=== PATIENT | male | born 1960 | race Caucasian/White ===

== ENCOUNTER 2024-08-03 20:00 | Inpatient (IN) | payer OTHER ==
[2024-08-03 19:45] VITALS: BP 131/75; PULSE 73; RESP 18; TEMP 99.2; O2SAT 95
[2024-08-03] MEDS ORDERED: MIRT-89 PO (20:39)
[2024-08-03] MEDS ORDERED: METH1ADH11 TP (20:39)
[2024-08-03] MEDS ORDERED: CARB1TAB36 PO (20:39)
[2024-08-03] MEDS ORDERED: OLAN5TAB52 PO (20:39)
[2024-08-03] MEDS ORDERED: THIA100T80 PO (20:39)
[2024-08-03] MEDS ORDERED: FERR325T27 PO (20:39)
[2024-08-03] MEDS ORDERED: VALP250S23 PO (20:39)
[2024-08-03] MEDS ORDERED: METO25 PO (20:39)
[2024-08-03] MEDS ORDERED: BENZ-227 PO (20:39)
[2024-08-03] MEDS ORDERED: ATOR40TA28 PO (20:39)
[2024-08-03] MEDS ORDERED: CARB25TA PO (20:39)
[2024-08-03] MEDS ORDERED: APIX5TAB PO (20:39)
[2024-08-03] MEDS ORDERED: TRAZ-252 PO (20:39)
[2024-08-03] MEDS ORDERED: ONDANSETRON HCL 4 MG/2 ML VIAL IVP PRN (20:45)
[2024-08-03] MEDS ORDERED: OLANZapine 5 MG TABLET PO PRN (20:45)
[2024-08-03] MEDS ORDERED: ALBUTEROL SULFATE 2.5 MG/0.5 ML NEB SOLUTION NEB PRN (21:00)
[2024-08-03] MEDS: DOCUSATE SODIUM 100 MG CAPSULE PO SCH (21:00)
[2024-08-03 21:26] LABS: BASOPHILS % (AUTO) 0.8 % (0.0-2.0); EOSINOPHILS % (AUTO) 4.7 % (1.0-6.0); HEMATOCRIT 26.4 % (41-53); HEMOGLOBIN 8.6 g/dL (13.5-17.5); LYMPHOCYTES # (AUTO) 2.5 K/uL (1.0-4.8); LYMPHOCYTES % (AUTO) 25.2 % (22.0-44.0); MEAN CORPUSCULAR HEMOGLOBIN 30.4 pg (26.0-34.0); MEAN CORPUSCULAR HGB CONC 32.3 G/dL (31.0-37.0); MEAN CORPUSCULAR VOLUME 94 fL (80-100); MONOCYTES # (AUTO) 0.9 K/uL (0.1-1.0); MONOCYTES % (AUTO) 9.1 % (2.0-9.0); NEUTROPHILS # (AUTO) 5.9 K/uL (1.8-7.7); NEUTROPHILS % (AUTO) 60.2 % (40.0-70.0); PLATELET COUNT (AUTO) 516 K/uL (150-450); RED BLOOD CELL COUNT(AUTO) 2.81 MIL/uL (4.50-5.90); RED CELL DISTRIBUTION WIDTH 17.4 % (11.5-14.5); WHITE BLOOD COUNT (AUTO) 9.9 K/uL (4.5-11.0)
[2024-08-03 21:34] LABS: CALCIUM, TOTAL 8.7 mg/dL (8.8-10.5); CREATININE 1.96 mg/dL (0.60-1.30); POTASSIUM 4.6 mmol/L (3.5-5.1)
[2024-08-03 21:42] LABS: ALBUMIN 2.4 g/dL (3.4-5.0); BILIRUBIN,TOTAL 0.2 mg/dL (0.1-1.0); TOTAL PROTEIN, SERUM 7.7 g/dL (6.4-8.2)
[2024-08-03] MEDS: APIXABAN 5 MG TABLET PO SCH (21:47)
[2024-08-03] MEDS: BENZONATATE 100 MG CAPSULE PO PRN (21:47)
[2024-08-03] MEDS: CARBIDOPA/LEVODOPA 25-100 MG TABLET PO SCH (21:47)
[2024-08-03] MEDS: METOPROLOL TARTRATE 25 MG TABLET PO SCH (21:47)
[2024-08-03] MEDS: VALPROIC ACID 250 MG/5 ML SOLUTION UDCUP PO SCH (21:47)
[2024-08-03] MEDS: MIRTAZAPINE 15 MG TABLET PO SCH (21:47)
[2024-08-03] MEDS: ACETAMINOPHEN 325 MG TABLET PO PRN (22:02)
[2024-08-03 23:47] LABS: % IRON SATURATION 17.3 % (30-44)
[2024-08-04 04:12] VITALS: BP 120/78; PULSE 78; RESP 18; TEMP 98.4; O2SAT 95
[2024-08-04 05:35] LABS: BASOPHILS % (AUTO) 1.1 % (0.0-2.0); EOSINOPHILS % (AUTO) 5.2 % (1.0-6.0); HEMATOCRIT 27.8 % (41-53); LYMPHOCYTES # (AUTO) 2.1 K/uL (1.0-4.8); LYMPHOCYTES % (AUTO) 22.2 % (22.0-44.0); MEAN CORPUSCULAR HEMOGLOBIN 30.5 pg (26.0-34.0); MEAN CORPUSCULAR HGB CONC 32.4 G/dL (31.0-37.0); MEAN CORPUSCULAR VOLUME 94 fL (80-100); MONOCYTES # (AUTO) 0.9 K/uL (0.1-1.0); MONOCYTES % (AUTO) 9.7 % (2.0-9.0); NEUTROPHILS # (AUTO) 5.8 K/uL (1.8-7.7); NEUTROPHILS % (AUTO) 61.8 % (40.0-70.0); PLATELET COUNT (AUTO) 524 K/uL (150-450); RED BLOOD CELL COUNT(AUTO) 2.96 MIL/uL (4.50-5.90); RED CELL DISTRIBUTION WIDTH 17.6 % (11.5-14.5); WHITE BLOOD COUNT (AUTO) 9.3 K/uL (4.5-11.0)
[2024-08-04 05:48] LABS: CALCIUM, TOTAL 8.9 mg/dL (8.8-10.5); CREATININE 1.81 mg/dL (0.60-1.30); MAGNESIUM 1.6 mg/dL (1.80-2.40)
[2024-08-04] MEDS ORDERED: INFLUENZA VIRUS VACCINE TVS (6MO+) 2024-25/PF 45 MCG/0.5 ML SYRINGE IM. ONE (06:30)
[2024-08-04 07:55] VITALS: BP 119/70; PULSE 76; RESP 18; TEMP 98.2; O2SAT 96
[2024-08-04] MEDS: THIAMINE 100 MG TABLET PO SCH (09:19)
[2024-08-04] MEDS: FERROUS SULFATE 325 MG EC TABLET PO SCH (09:19)
[2024-08-04] MEDS: ATORVASTATIN CALCIUM 40 MG TABLET PO SCH (09:19)
[2024-08-04 15:45] VITALS: BP 119/74; PULSE 67; RESP 18; TEMP 97.9; O2SAT 98
[2024-08-04] MEDS: MAGNESIUM OXIDE 400 MG TABLET PO ONE (15:55)
[2024-08-04] MEDS: TraZODone HCL 50 MG TABLET PO PRN (20:51)
[2024-08-05 04:41] VITALS: BP 108/78; PULSE 77; RESP 18; TEMP 98.7; O2SAT 97
[2024-08-05] MEDS: APIXABAN 5 MG TABLET PO SCH (09:41)
[2024-08-05 20:33] VITALS: BP 107/62; PULSE 77; RESP 17; TEMP 98.4; O2SAT 95
[2024-08-05] MEDS: OLANZapine 5 MG TABLET PO SCH (21:02)
[2024-08-05] MEDS: MIRTAZAPINE 30 MG TABLET PO SCH (21:03)
[2024-08-06 04:40] VITALS: BP 126/86; PULSE 73; RESP 18; TEMP 97.9; O2SAT 95
[2024-08-06 08:30] VITALS: BP 112/65; PULSE 67; RESP 18; TEMP 98.1; O2SAT 97
[2024-08-06] MEDS: EPOETIN ALFA 10,000 UNITS/ML VIAL SQ SCH (09:00)
[2024-08-06 17:47] LABS: COVID AG,FIA SOURCE NASAL SWAB
[2024-08-06 18:07] LABS: SARS-COV2 (COVID) ANTIGEN,FIA Negative (Negative)
[2024-08-06] MEDS ORDERED: DOCU-385 PO (18:46)
[2024-08-06] MEDS ORDERED: MIRT-149 PO (18:49)
[2024-08-06] MEDS ORDERED: OLAN5TAB52 PO (18:50)
[2024-08-06] MEDS ORDERED: ALBU2.5V39 NEB (18:51)
[2024-08-06] MEDS ORDERED: ACET-2247 PO (18:51)
[2024-08-06] MEDS ORDERED: ONDA4VIA60 IVP (18:53)
[2024-08-06 20:21] VITALS: BP 107/63; PULSE 83; RESP 18; TEMP 98.9; O2SAT 97
[2024-08-07] MEDS ORDERED: THIA100T80 PO (15:35)
[2024-08-07] MEDS ORDERED: OLAN5TAB52 PO (15:35)
[2024-08-07] MEDS ORDERED: MIRT-149 PO (15:35)
== END 2024-08-06 23:00 | DRG 392 ==
LOC: 4E 20:03
PROVIDERS: ADMIT Internal Medicine; ATTEND Internal Medicine
PROC: GZ56ZZZ Individual Psychotherapy, Supportive (ICD-10-PCS; principal; 2024-08-05)
DX: R13.10 Dysphagia, unspecified (principal); G20.C Parkinsonism, unspecified; N18.30 Chronic kidney disease, stage 3 unspecified; Z20.822 Contact with and (suspected) exposure to COVID-19; F25.9 Schizoaffective disorder, unspecified; F25.1 Schizoaffective disorder, depressive type; I12.9 Hypertensive chronic kidney disease with stage 1 through stage 4 chronic kidney disease, or unspecified chronic kidney disease; D63.1 Anemia in chronic kidney disease; E78.5 Hyperlipidemia, unspecified; Z86.718 Personal history of other venous thrombosis and embolism; Z79.01 Long term (current) use of anticoagulants; Z79.899 Other long term (current) drug therapy
CPT/HCPCS: 71045; 71250; 74230; 80048; 80053; 82271; 83540; 83550; 83735; 85025; 85045; 87081; 92610; 92611; 97116; 97162; 97166; 97535; G0378; J0885; 36415-L1; 36415-TC

== ENCOUNTER 2024-08-06 11:01 | Inpatient (IN) | payer OTHER ==
[~2024-08-06] VITALS: Ht 167.6 cm; Wt 74.2 kg
[~2024-08-06 11:01] MED LIST: APIX5TAB PO; ATOR40TA28 PO; BENZ-227 PO; CARB1TAB36 PO; CARB25TA PO; FERR325T27 PO; METH1ADH11 TP; METO25 PO; MIRT-89 PO; OLAN5TAB52 PO; THIA100T80 PO; TRAZ-252 PO; VALP250S23 PO
[2024-08-06] MEDS ORDERED: ZOLPIDEM TARTRATE 10 MG TABLET PO PRN (12:30)
[2024-08-06] MEDS ORDERED: HALOPERIDOL 5 MG TABLET PO PRN (12:30)
[2024-08-06] MEDS ORDERED: DOCU-385 PO (18:46)
[2024-08-06] MEDS ORDERED: MIRT-149 PO (18:49)
[2024-08-06] MEDS ORDERED: OLAN5TAB52 PO (18:50)
[2024-08-06] MEDS ORDERED: ACET-2247 PO (18:51)
[2024-08-06] MEDS ORDERED: ALBU2.5V39 NEB (18:51)
[2024-08-06] MEDS ORDERED: ONDA4VIA60 IVP (18:53)
[2024-08-06] MEDS: OLANZapine 5 MG TABLET PO SCH (21:00)
[2024-08-06] MEDS: MIRTAZAPINE 30 MG TABLET PO SCH (21:00)
[2024-08-06 23:30] VITALS: BP 125/82; PULSE 80; RESP 18; TEMP 97.2; O2SAT 97
[2024-08-07 06:09] LABS: HEMOGLOBIN A1C 5.1 % (3.8-5.6)
[2024-08-07 06:14] LABS: CHOL/HDL RATIO 4.3 (4.2-7.3)
[2024-08-07] MEDS ORDERED: DOCUSATE SODIUM 100 MG CAPSULE PO PRN (07:00)
[2024-08-07] MEDS ORDERED: ACETAMINOPHEN 325 MG TABLET PO PRN (07:00)
[2024-08-07] MEDS ORDERED: MAGNESIUM HYDROXIDE SUSPENSION 30 ML UDCUP PO PRN (07:00)
[2024-08-07] MEDS ORDERED: IBUPROFEN 400 MG TABLET PO PRN (07:00)
[2024-08-07] MEDS ORDERED: ONDANSETRON 4 MG TABLET PO PRN (07:00)
[2024-08-07] MEDS ORDERED: PETROLATUM,WHITE 28 GM JELLY TP PRN (07:00)
[2024-08-07] MEDS ORDERED: MAG HYDROX/ALUMINUM HYD/SIMETH ES 30 ML SUSPENSION UDCUP PO PRN (07:00)
[2024-08-07] MEDS ORDERED: ALBUTEROL SULFATE HFA 90 MCG/PUFF 8 GM INHALER IH PRN (07:00)
[2024-08-07] MEDS ORDERED: LOPERAMIDE HCL 2 MG CAPSULE PO PRN (07:00)
[2024-08-07] MEDS ORDERED: CloNIDine HCL 0.1 MG TABLET PO PRN (07:00)
[2024-08-07] MEDS ORDERED: GuaiFENesin/D-METHORPHAN [SUGAR-FREE] 200-20MG/10 ML SYRUP UDCUP PO PRN (07:00)
[2024-08-07] MEDS ORDERED: NICOTINE 14 MG/24 HOUR PATCH TD PRN (07:00)
[2024-08-07 08:00] VITALS: BP 125/83; PULSE 83; RESP 18; TEMP 97.8
[2024-08-07] MEDS: THIAMINE 100 MG TABLET PO SCH (08:10)
[2024-08-07] MEDS: ATORVASTATIN CALCIUM 40 MG TABLET PO SCH (08:11)
[2024-08-07] MEDS: METOPROLOL TARTRATE 25 MG TABLET PO SCH (08:11)
[2024-08-07] MEDS: CARBIDOPA/LEVODOPA 25-100 MG TABLET PO SCH (08:12)
[2024-08-07] MEDS: FERROUS SULFATE 325 MG EC TABLET PO SCH (08:13)
[2024-08-07] MEDS: APIXABAN 5 MG TABLET PO SCH (08:30)
[2024-08-07 10:04] VITALS: BP 125/83; PULSE 83; RESP 18; TEMP 97.8; O2SAT 98
[2024-08-07] MEDS ORDERED: THIA100T80 PO (15:35)
[2024-08-07] MEDS ORDERED: OLAN5TAB52 PO (15:35)
[2024-08-07] MEDS ORDERED: MIRT-149 PO (15:35)
== END 2024-08-07 19:00 | disposition home or self-care (01) | DRG 885 ==
LOC: 3EI 23:02
PROVIDERS: ADMIT Psychiatry & Neurology Child & Adolescent Psychiatry; ATTEND Psychiatry & Neurology Child & Adolescent Psychiatry
PROC: GZ56ZZZ Individual Psychotherapy, Supportive (ICD-10-PCS; principal; 2024-08-07)
DX: F25.1 Schizoaffective disorder, depressive type (principal); I10 Essential (primary) hypertension
CPT/HCPCS: 80061; 83036; 87081; 92610